=== PATIENT | female | born 1985 | race Caucasian/White ===

== ENCOUNTER 2018-08-22 12:36 | Outpatient (REF) | payer OTHER, SELFPAY ==
[2018-08-22 13:28] LABS: Abs Immature Grans 0.01 k/cumm (0.0-0.09); Absolute Basophil Count 0.02 k/cumm (0.0-0.2); Absolute Lymphocyte Count 0.92 k/cumm (1.2-3.4); Absolute Monocyte Count 0.37 k/cumm (0.11-0.7); Absolute Neutrophil Count 2.67 k/cumm (1.2-6.7); Basophils % 0.5; Eosinophils % 2.4; HCT 37.1 % (36.0-46.0); Immature Grans % 0.2; Lymphocytes % 22.5; Mean Corp. HGB Concentration 32.3 g/dL (32.0-36.0); Mean Corpuscular Hemoglobin 28.6 pg (27.0-33.0); Mean Corpuscular Volume 88.5 fL (80-95); Mean Platelet Volume 11.5 fL (8.0-11.0); Neutrophils % 65.4; Platelet Count 250 x1000/uL (130-400); RBC 4.19 m/cumm (4.00-5.20); RBC Distribution Width 13.7 % (11.7-14.6); White Blood Cell Count 4.09 k/cumm (4.4-10.8)
[2018-08-22 13:43] LABS: Cholesterol 120 mg/dL (50-200); Glucose 84 mg/dL (70-100); HDL Cholesterol 62 mg/dL (40-60); LDL CHOLESTEROL 46 mg/dL (<100); Triglyceride 36 mg/dL (30-150)
== END 2018-08-22 12:56 ==
LOC: NCHCN 12:36
PROVIDERS: Visit Provider Nurse Practitioner Family
DX: R07.9 Chest pain, unspecified (principal)
CPT/HCPCS: 80061; 82947; 83721; 85025

== ENCOUNTER 2019-03-13 15:47 | Outpatient (REF) | payer OTHER, SELFPAY ==
--- NOTE | 2019-03-13 15:00 | PAPFT_PTH ---
PATIENT: Marci Meyer LOC: [facility] U#:[id number] AGE/SX: 33/F ROOM: RE03/13/[address]: YAKOV Wolfe : 1985 BED: DIS: 03/13/2019 SPEC #: [id number] RECD: 03/13/19 18:02 STATUS: ERICK REJoselito #: [id number] ANASTASIA: 03/13/19 15:[address]: Mariola Eli DEPT: ON LICENSE OF [facility] Cytology RECD BY: Esperanza Dhaliwal ENTERED: 03/13/19 18:02 SP TYPE: PAPFT OTHR DR: Doretha Diaz Tissues: 1 - CX/ENDOCX FOR PAP SMEARS Procedures: PAP THIN PREP/[facility] Screening HPV DNA PROBE Comments: [id number]
== END 2019-03-13 16:07 ==
LOC: LBN 15:47
PROVIDERS: PCP Nurse Practitioner Family; Visit Provider Nurse Practitioner Family
DX: Z12.4 Encounter for screening for malignant neoplasm of cervix (principal); Z11.51 Encounter for screening for human papillomavirus (HPV)
CPT/HCPCS: 88142; 87624

== ENCOUNTER 2019-04-03 15:25 | Outpatient (REF) | payer OTHER, SELFPAY ==
--- NOTE | 2019-04-03 14:40 | ENDO_PTH ---
PATIENT: Marci Meyer LOC: [facility] U#:[id number] AGE/SX: 33/F ROOM: RE04/03/[address]: Trma Price : 1985 BED: DIS: 04/03/2019 SPEC #: [id number] RECD: 04/03/19 18:18 STATUS: ERICK REQ #: [id number] ANASTASIA: 04/03/19 14:[address]: Tram Price DEPT: Surgical Specimen RECD BY: Esperanza Dhaliwal ENTERED: 04/03/19 18:18 SP TYPE: Endo OTHR DR: Doretha Diaz Tissues: 1 - ENDOCERVICAL BX/CURRETTE Procedures: GROSS AND MICRO LEVEL 4 Comments: [id number]
== END 2019-04-03 15:45 ==
LOC: LBN 15:25
PROVIDERS: PCP Nurse Practitioner Family; Visit Provider Obstetrics & Gynecology Gynecology
DX: R87.613 High grade squamous intraepithelial lesion on cytologic smear of cervix (HGSIL) (principal); R87.810 Cervical high risk human papillomavirus (HPV) DNA test positive
CPT/HCPCS: 88305

== ENCOUNTER 2019-04-21 14:59 | Outpatient (REF) | payer OTHER, SELFPAY ==
--- NOTE | 2019-04-21 14:00 | CER_PTH ---
PATIENT: Marci Meyer LOC: [facility] U#:[id number] AGE/SX: 33/F ROOM: RE04/21/[address]: Josh Díaz MD : 1985 BED: DIS: 04/21/2019 SPEC #: [id number] RECD: 04/21/19 16:52 STATUS: ERICK REQ #: [id number] ANASTASIA: 04/21/19 14:[address]: Josh Díaz DEPT: Surgical Specimen RECD BY: Esperanza Dhaliwal ENTERED: 04/21/19 16:52 SP TYPE: CER OTHR DR: Doretha Diaz Tissues: 1 - CERVICAL LEEP/LOOP Procedures: GROSS AND MICRO LEVEL 5 Comments: [id number]
== END 2019-04-21 15:19 ==
LOC: LBN 14:59
PROVIDERS: PCP Nurse Practitioner Family; Visit Provider Obstetrics & Gynecology
DX: N87.1 Moderate cervical dysplasia (principal); Z87.410 Personal history of cervical dysplasia
CPT/HCPCS: 88307

== ENCOUNTER 2019-05-22 00:47 | Outpatient (CLI) | payer OTHER, SELFPAY ==
--- NOTE | 2019-05-22 14:20 | DI.US_ITS ---
SYMPTOM/DIAGNOSIS: HEAVY, PAINFUL PERIODS. DYSPAREUNIA N92.0 EXCESSIVE AND FREQUENT MENSTRUATION WITH REGULAR CYCLE. PELVIC ULTRASOUND: There are no prior comparison exams. The uterus measures 9.7 x 4.9 x 6.7 cm. No discrete fibroids are identified. The endometrium appears thickened at 2.4 cm and appears heterogeneous. The ovaries are normal in size and appearance. There is no evidence of free fluid or hydronephrosis. IMPRESSION: Thickened heterogeneous endometrium. Heterogeneous myometrium without focal fibroid.
== END 2019-05-22 01:07 ==
PROVIDERS: PCP Nurse Practitioner Family; Visit Provider Nurse Practitioner Family
DX: N92.0 Excessive and frequent menstruation with regular cycle (principal); N94.6 Dysmenorrhea, unspecified; N85.8 Other specified noninflammatory disorders of uterus
CPT/HCPCS: 76830; 76856

== ENCOUNTER 2019-08-20 19:55 | Emergency (ER) | payer OTHER, SELFPAY ==
[2019-08-20 20:06] VITALS: BP 120/72; PULSE 104; RESP 20; TEMP 37.1; O2SAT 100
--- NOTE | 2019-08-20 20:29 | DI.RAD_ITS ---
EXAM: XR CHEST 2V PA LATERAL INDICATION: r/o pneumonia., FEVER, RT SIDED CHEST PAIN COMPARISON: No exams were available for comparison TECHNIQUE: 2D digital imaging was performed. FINDINGS: The lungs are free of infiltrate. There is no pleural effusion. The cardiovascular structures appear intact. IMPRESSION: No evidence of acute cardiopulmonary disease.
[2019-08-20] MEDS: Ketorolac 15 MG/ML VIAL IVP (20:51)
[2019-08-20] MEDS: Normal Saline 1,000 ML 1000 ML IV (20:52)
--- NOTE | 2019-08-20 21:20 | DI.VRAD_ITS ---
PROCEDURE INFORMATION: Exam: XR Chest, 2 Views Exam date and time: 08/20/2019 8:31 PM Clinical history: 33 years old, female; Other: R/O pneumonia TECHNIQUE: Imaging protocol: XR of the chest Views: 2 views. COMPARISON: No relevant prior studies available. FINDINGS: Lungs: No definite parenchymal consolidation. Pleural space: Unremarkable. No pleural effusion. No pneumothorax. Heart/Mediastinum: Unremarkable. No cardiomegaly. Bones/joints: Unremarkable. IMPRESSION: No definite parenchymal consolidation. Dictated and Authenticated by: Rao Troncoso MD. Ordering:FABRICE Rojas MD
--- NOTE | 2019-08-20 21:48 | W.ED.GENAD ---
Discharge Plan Disposition Patient Disposition: HOME Condition: Good Discharge Details Chief Complaint: Fever Clinical Impression: Pericarditis, Viral illness Primary Care Provider: Bobo Oliveira ED Provider: Crystal New Home Meds and New Rx's Prescriptions: No Action Daytime Cold and Cough 1,000-30 mg/30 mL Liquid RF: 0 Discharge Instructions Instructions: Acute Pericarditis (ED) Additional Instructions: Use ibuprofen 600 mg every 8 hours for 1 week then begin to slowly taper the dose over the next 3 to 4 weeks Presents by mouth. Avoid heavy exertion. Follow-up with her primary care doctor this week in the office. Return for any worsening of your symptoms, difficulty breathing, shortness of breath, increasing chest pain, dizziness or feeling of syncope or for escalation of your symptoms as discussed. Return sooner if needed Discharge Data Discharge Date/Time-TO BE ENTERED AT DEPARTURE: 08/20/19 22:55 Medical Decision Making 33-year-old healthy patient presents with complaints of 5 days of illness. Day 3 and 4 associated with high fevers which have since resolved. Patient had a single morning of nausea which again since resolved. Patient has reported right-sided chest pain with radiation to her back. Patient reports an episode of dizziness 2 days ago and another today while driving to the ER. Patient denies obvious shortness of breath. Patient does have positional type chest pain which is improved when leaning forward. Patient had associated widespread body ache. Patient initial evaluation and exam concern for possible influenza. Influenza testing and x-ray ordered. Influenza testing and x-ray both negative. Given patient's positional change concern for likely post viral pericarditis. Bedside ultrasound preformed by Dr. Dent reveals small pericardial effusion. Discussed case and recommendation for NSAIDs or aspirin daily. Discussed the use of colchicine however patient would prefer to use NSAIDs alone initially as she prefers less medication. If not improved in next few days consider reevaluation. Patient's vital signs are stable. Heart rate 85 after Toradol. Patient in no apparent distress. Patient agrees with plan of care. Encourage return for any worsening, alarming or increase in her symptoms. Patient reports understanding HPI General Date/Time Provider Initiated Documentation: 08/20/19 20:11. HPI Narrative: Patient presents for onset of achiness and fatigue. Patient reports on day 3 of illness fever up to almost 103 measured at home, relieved on day 4. Patient reports associated chest pain on the right anterior chest as well as posteriorly. Patient reports associated chest pressure which is present. Patient reports an episode of dizziness 2 days ago which since relieved then she noticed an similar episode of dizziness today. Patient reports widespread body ache present during course of illness. Patient denies nasal congestion, sore throat or coughing. Patient does report episode of nausea 2 days ago which again since relieved no associated diarrhea or vomiting. Patient does report the chest pain is mildly positional and does improve when leaning forward. Related Data Home Medications Medication Instructions Recorded Confirmed acetaminophen-DM [Daytime Cold and ml 08/20/19 Cough] Allergies Allergy/AdvReac Type Severity Reaction Status Date / Time acetaminophen [From Vicodin] Allergy hives Verified 08/20/19 20:09 hydrocodone bitartrate Allergy hives Verified 08/20/19 20:09 [From Vicodin] hydrocodone [From Vicodin] AdvReac Intermediate Hives Verified 08/20/19 20:09 General Stated Complaint: Fever JOSE G: 3 Review of Systems Review of Systems Narrative: CONSTITUTIONAL: The patient denies fevers, chills. EYES: Denies vision changes, blurry vision, or eye pain. ENT: Denies hearing changes, tinnitus, vertigo, sore throat. CARDIAC: Chest pain present. RESPIRATORY: Denies cough, sputum. Denies difficulty breathing. GASTROINTESTINAL: Denies abdominal pain, changes in bowel, vomiting or nausea. GENITOURINARY: Denies dysuria, or frequency of urination. MUSCULOSKELETAL: Denies Joint pain, gait changes. NEUROLOGIC: Denies headaches, Denies focal weakness. Denies numbness. INTEGUMENT: Denies rashes. PSYCHIATRIC: Denies behavior changes. Denies anxiety or depression. ENDOCRINOLOGY: Denies fatigue. PSYCHIATRY: Denies depression, agitation or anxiety [facility] Medical History Abnormal cervical cytology (Acute 09/16/17) Bacterial vaginosis (Resolved) Frequent infections in the past. 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 Well hydrated. Alert and alert. HENMT: Head nomocephalic, normal to inspection. Atraumatic. Hearing grossly normal. EYES: General normal appearance. Alignment normal. Eyelids normal. Conjunctiva normal. NECK: Normal visual inspection. FROM. Trachea midline. No Midline tenderness. CHEST: Normal insepection of the chest. No palpable chest pain with palpation. RESP: Normal respiratory effort. Speaking full sentences. No cough. No audible wheezing. No retractions. CARDIO: No JVD. MUSCULOSKELETAL: Normal Gait. FROM of all extremities. SKIN: Normal. Dry. No rashes. NEURO: Alert and awake. Speech clear. PSYCH: Normal affect. Cooperative. Course Vital Signs Vital signs: Vital Signs Temperature 37.1 C 08/20/19 20:06 Pulse 104 H 08/20/19 20:06 Respiratory Rate 08/20/19 20:06 Blood Pressure 120/72 08/20/19 20:06 Pulse Oximetry 100 08/20/19 20:06 Temperature 37.1 C 08/20/19 20:06 Temperature Source Temporal Artery Scan 08/20/19 20:06 Pulse 104 H 08/20/19 20:06 Respiratory Rate 20 08/20/19 20:06 Blood Pressure 120/72 08/20/19 20:06 Blood Pressure Position Sitting 08/20/19 20:06 Pulse Oximetry 100 08/20/19 20:06 Oxygen Delivery Method Room Air 08/20/19 20:06 Oxygen Flow Rate 0 08/20/19 20:06 Lab/Test Results Lab/Test Results: 08/20/19 20:25 Nasopharynx Influenza Types A,B Antigen - Final
[2019-08-20 22:16] VITALS: BP 102/59; PULSE 85; RESP 16; TEMP 36.8; O2SAT 99
== END 2019-08-20 22:55 | disposition home or self-care (01) ==
PROVIDERS: Emergency Provider Physician Assistant; PCP Family Medicine
DX: I30.0 Acute nonspecific idiopathic pericarditis (principal); B34.9 Viral infection, unspecified
CPT/HCPCS: 87449; 96361; 96374; 99284; 71046; J1885

== ENCOUNTER 2020-02-22 09:44 | Outpatient (CLI) | payer BC, SELFPAY ==
[2020-02-24 06:32] LABS: SARS-CoV-2 RNA Undetected (Undetected); SARS-CoV-2 Specimen Source Nasopharynx
== END 2020-02-22 10:04 ==
LOC: NCHCN 09:48 → LBO 09:49
PROVIDERS: PCP Family Medicine; Visit Provider Family Medicine
DX: Z20.828 Contact with and (suspected) exposure to other viral communicable diseases (principal); R05 Cough; R50.9 Fever, unspecified
CPT/HCPCS: U0003

== ENCOUNTER 2020-04-15 00:30 | Outpatient (CLI) | payer BC, SELFPAY ==
--- NOTE | 2020-04-15 08:00 | ETT_ITS ---
APPROVED REPORT Exam: Exercise Treadmill Patient Location: Out-Patient Room/Bed: Stress Nurse: Luisana Anna RN BMI: 23.43 Baseline Rhythm: Sinus Rhythm Comment: Borderline short W[place] syndrome Indications: Patient reports having intermittent midsternal ???stabbing??? chest pain with both activ ity and at rest (occasionally) for the past 2 years. She states occasionally she will have radiation down left arm and dizziness. This chest pain lasts a few minutes and does away with she stops and yvette ms down. Medical History Medical History: ???Endocarditis last year??? Cardiac Medications: Amitriptyline Allergies: Vicodin Cardiac Risk Factors: FHX of CAD Previous Cardiac Procedures: None Pretest Chest Pain Characteristics: None Exercise History: Physically active Physical Disabilities: None Lung Sounds: Clear to auscultation Heart Sounds: Regular Stress Test Details Test: Exercise stress testing was performed using a Axel protocol. Rest Stress HR Resting HR Supine: 78 bpm Max Heart Rate (APMHR): 185 bpm Resting HR Standin bpm Target HR (85% APMHR): 157 bpm Max HR Achieved: 176 bpm % of APMHR: 95 HR response to stress: Normal HR response to stress BP Resting BP Supine: 118/72 mmHg Resting BP Standin/76 mmHg Max BP: 138/56 mmHg BP response to stress: Normal blood pressure response to stress. ECG Resting ECG: Sinus Rhythm Ectopy: Borderline short W[place] interval Stress ECG: Sinus Tachycardia ST Change: Normal Arrhythmia: None Recovery ECG: Sinus Rhythm Recovery ST Change: Normal Recovery Arrhythmia: None Clinical Reason for Termination: Fatigue Stress Symptoms: None Exercise duration: 12 min2 sec Highest Stage Reached: Stage 5: 5.0 mph at 18% grade. Exercise capacity: 13.49 METs Functional Capacity: Above average capacity Stress ECG Conclusion 1. The patient exercised for 12 minutes (13 METS) 2. Patient no symptoms suggestive of ischemia and stopped due to fatigue. 3. There is no evidence of ischemia on the ECG portion of the exam 4. The Perla Score ( 11) estimates an annual cardiovascular mortality of 0% and a five year survival o f 96%. Using the Perla Score there is a low probability of any angiographic coronary disease. Stress Test Summary STAGE Time (mins) Speed (mph) Grade (%) HR BP SYMPTOMS METS Supine 78 118/72 Standing 82 114/76 1 3 1.7 10 119 116/70 4.6 2 6 2.5 12 133 122/62 7 3 9 3.4 14 154 124/60 10.2 4 12 4.2 16 171 12.9 1 min recovery 143 138/56 3 min recovery 104 124/64 6 min recovery 98 120/68
== END 2020-04-15 00:50 ==
PROVIDERS: PCP Family Medicine; Visit Provider Nurse Practitioner Family
DX: R07.89 Other chest pain (principal); Z82.49 Family history of ischemic heart disease and other diseases of the circulatory system
CPT/HCPCS: 93017

== ENCOUNTER 2020-05-06 15:23 | Outpatient (REF) | payer BC, SELFPAY ==
--- NOTE | 2020-05-06 14:40 | PAPFT_PTH ---
PATIENT: Marci Meyer LOC: [facility] U#:[id number] AGE/SX: 34/F ROOM: RE05/06/[address]: YAKOV Wolfe : 1985 BED: DIS: 05/06/2020 SPEC #: [id number] RECD: 05/06/20 16:46 STATUS: ERICK REQ #: [id number] ANASTASIA: 05/06/20 14:[address]: Mariola Eli DEPT: [facility] Cytology RECD BY: Esperanza Dhaliwal ENTERED: 05/06/20 16:46 SP TYPE: PAPFT OTHR DR: Bobo Oliveira Tissues: 1 - CX/ENDOCX FOR PAP SMEARS Procedures: PAP THIN PREP/[facility] Screening Comments: [id number]
[2020-05-07 15:53] LABS: Chlamydia Result Negative (Negative); GC Result Negative (Negative)
== END 2020-05-06 15:43 ==
LOC: LBN 15:23
PROVIDERS: PCP Family Medicine; Visit Provider Nurse Practitioner Family
DX: Z11.3 Encounter for screening for infections with a predominantly sexual mode of transmission (principal); Z11.51 Encounter for screening for human papillomavirus (HPV); R87.612 Low grade squamous intraepithelial lesion on cytologic smear of cervix (LGSIL)
CPT/HCPCS: 87491; 87591; 88142

== ENCOUNTER 2020-05-27 03:59 | Outpatient (CLI) | payer BC, SELFPAY | END 2020-05-27 04:19 | PROVIDERS: PCP Family Medicine; Visit Provider Nurse Practitioner Family | DX: R07.9 Chest pain, unspecified (principal) | CPT/HCPCS: 93225 ==

== ENCOUNTER 2020-05-29 14:31 | Outpatient (CLI) | payer BC, SELFPAY ==
--- NOTE | 2020-05-30 08:57 | W.HOLTRPT ---
Date of service: 05/30/20 Time of Service: 08:57 Holter Monitor Report Holter Monitor Note: There is a 24-hour Holter monitor ordered for indication of chest pain. ?Patient was normal sinus rhythm for majority the recording with an average heart rate of 83 bpm. ?There were 0 episodes of SVT and 0 episodes of VT. ?There was one 7 beat run of idioventricular rhythm. ?There were no episodes of atrial fibrillation, no pauses grade 3 seconds no evidence of high degree heart block. ?All patient triggered events were associated with sinus rhythm and sinus tachycardia.
== END 2020-05-29 14:51 ==
PROVIDERS: PCP Family Medicine; Visit Provider Nurse Practitioner Family
DX: R07.9 Chest pain, unspecified (principal); I49.8 Other specified cardiac arrhythmias
CPT/HCPCS: 93226

== ENCOUNTER 2020-06-14 16:31 | Outpatient (REF) | payer BC, SELFPAY ==
--- NOTE | 2020-06-14 16:00 | ENDO_PTH ---
PATIENT: Marci Meyer LOC: [facility] U#:[id number] AGE/SX: 34/F ROOM: RE06/14/[address]: Tram Price : 1985 BED: DIS: 06/14/2020 SPEC #: [id number] RECD: 06/14/20 17:03 STATUS: ERICK REJoselito #: [id number] ANASTASIA: 06/14/20 16:[address]: Tram Price DEPT: Surgical Specimen RECD BY: Esperanza Dhaliwal ENTERED: 06/14/20 17:04 SP TYPE: Endo OTHR DR: Bobo Oliveira Tissues: 1 - ENDOCERVICAL BX/CURRETTE Procedures: GROSS AND MICRO LEVEL 4 Comments: [id number]
== END 2020-06-14 16:51 ==
LOC: LBN 16:31
PROVIDERS: PCP Family Medicine; Visit Provider Obstetrics & Gynecology Gynecology
DX: N87.1 Moderate cervical dysplasia (principal)
CPT/HCPCS: 88305

== ENCOUNTER 2020-07-10 14:42 | Outpatient (REF) | payer BC, SELFPAY ==
[2020-07-12 22:02] LABS: SARS-CoV-2 RNA Undetected (Undetected); SARS-CoV-2 Specimen Source Nasopharynx
== END 2020-07-10 15:02 ==
LOC: NCHCN 14:42
PROVIDERS: PCP Family Medicine; Visit Provider Nurse Practitioner Family
DX: R50.9 Fever, unspecified (principal)
CPT/HCPCS: U0003

== ENCOUNTER 2020-09-11 18:25 | Outpatient (REF) | payer BC, SELFPAY | END 2020-09-11 18:45 | LOC: NCHCN 18:25 | PROVIDERS: PCP Family Medicine; Visit Provider Family Medicine | DX: N39.0 Urinary tract infection, site not specified (principal) | CPT/HCPCS: 87086 ==

== ENCOUNTER 2021-02-13 17:17 | Outpatient (REF) | payer BC, SELFPAY ==
[2021-02-13 20:41] LABS: Abs Immature Grans 0.01 10^3/uL (0.0-0.06); Absolute Basophil Count 0.04 10^3/uL (0.0-0.2); Absolute Eosinophil Count 0.07 10^3/uL (0.0-0.7); Absolute Lymphocyte Count 1.03 10^3/uL (1.2-3.4); Absolute Monocyte Count 0.34 10^3/uL (0.1-0.8); Absolute Neutrophil Count 3.52 10^3/uL (1.2-6.7); Basophils % 0.8; Eosinophils % 1.4; HCT 37.5 % (36.0-46.0); HGB 12.1 g/dL (11.2-15.7); Immature Grans % 0.2; Lymphocytes % 20.6; MCH 27.6 pg (27.0-33.0); MCHC 32.3 % (32.0-36.0); MCV 85.4 fL (80-95); MPV 11.3 fL (8.0-11.0); Monocytes % 6.8; Neutrophils % 70.2; Nucleated RBC 0 %; Platelet Count 293 10^3/uL (130-400); RBC 4.39 10^6/uL (3.93-5.22); RDW 13.3 % (11.7-14.6); RDW-SD 41.9 fL; WBC 5.01 10^3/uL (4.4-10.8)
[2021-02-13 21:22] LABS: ALT 21 U/L (14-59); AST 7 U/L (15-37); Albumin 4.7 g/dL (3.4-5.0); Alkaline Phosphatase 60 U/L (46-116); Anion Gap 9.5 mmol/L (3-11); BUN 12 mg/dL (7-18); Bilirubin, Total 0.6 mg/dL (0.2-1.0); CO2 27.5 mmol/L (21.0-32.0); CREATININE 0.8 mg/dL (0.55-1.02); Calcium 9.2 mg/dL (8.5-10.1); Chloride 103 mmol/L (98-107); Glucose 86 mg/dL (74-106); Potassium 3.9 mmol/L (3.5-5.1); Sodium 140 mmol/L (136-145)
[2021-02-14 11:12] LABS: ESR 18 mm/hr (<or=20)
[2021-02-15 14:20] LABS: COVID-19 RT-PCR UVMMC Result Negative (Negative)
== END 2021-02-13 17:18 | disposition home or self-care (01) ==
LOC: NCHCN 17:17
PROVIDERS: PCP Family Medicine; Visit Provider Nurse Practitioner Family
DX: R50.9 Fever, unspecified (principal); Z20.822 Contact with and (suspected) exposure to COVID-19; J06.9 Acute upper respiratory infection, unspecified
CPT/HCPCS: 80053; 85652; U0003; 81003; 85025

== ENCOUNTER 2021-08-12 15:20 | Outpatient (REF) | payer BC, SELFPAY ==
[2021-08-14 19:41] LABS: COVID-19 RT-PCR UVMMC Result Negative (Negative)
== END 2021-08-12 15:21 | disposition home or self-care (01) ==
LOC: LBN 15:20
PROVIDERS: PCP Family Medicine; Visit Provider Nurse Practitioner Family
DX: Z20.822 Contact with and (suspected) exposure to COVID-19 (principal); J02.9 Acute pharyngitis, unspecified
CPT/HCPCS: U0003

== ENCOUNTER 2022-08-10 12:34 | Outpatient (REF) | payer BC, SELFPAY ==
--- NOTE | 2022-08-10 08:45 | PAPFT_PTH ---
PATIENT: Marci Meyer LOC: [facility] U#:[id number] AGE/SX: 36/F ROOM: RE08/10/[address]: Adriana French MD : 1985 BED: DIS: 08/10/2022 SPEC #: [id number] RECD: 08/10/22 13:11 STATUS: ERICK REQ #: [id number] ANASTASIA: 08/10/22 08:[address]: Adriana French DEPT: [facility] Cytology RECD BY: Esperanza Dhaliwal ENTERED: 08/10/22 13:12 SP TYPE: PAPFT OTHR DR: Bobo Oliveira Tissues: 1 - CX/ENDOCX FOR PAP SMEARS Procedures: PAP THIN PREP/[facility] Screening HPV DNA PROBE Comments: [id number]
== END 2022-08-10 12:35 | disposition home or self-care (01) ==
LOC: LBN 12:34
PROVIDERS: PCP Family Medicine; Visit Provider Obstetrics & Gynecology
DX: Z12.4 Encounter for screening for malignant neoplasm of cervix (principal); R87.613 High grade squamous intraepithelial lesion on cytologic smear of cervix (HGSIL); Z11.51 Encounter for screening for human papillomavirus (HPV); R87.810 Cervical high risk human papillomavirus (HPV) DNA test positive
CPT/HCPCS: 88142; 87624

== ENCOUNTER 2023-02-22 11:01 | Outpatient (REF) | payer BC, SELFPAY ==
--- NOTE | 2023-02-22 11:06 | CER_PTH ---
PATIENT: Marci Meyer LOC: [facility] U#:[id number] AGE/SX: 37/F ROOM: RE02/22/[address]: Adriana French MD : 1985 BED: DIS: 02/22/2023 SPEC #: [id number] RECD: 02/22/23 17:37 STATUS: ERICK REQ #: [id number] ANASTASIA: 02/22/23 11:[address]: Adriana French DEPT: Surgical Specimen RECD BY: Esperanza Dhaliwal ENTERED: 02/22/23 17:38 SP TYPE: CER OTHR DR: Bobo Oliveira Tissues: 1 - CERVICAL BIOPSY 2 - ENDOMETRIUM BX/CURRETTE Procedures: GROSS AND MICRO LEVEL 4 GROSS AND MICRO LEVEL 5 Comments: [id number]
== END 2023-02-22 11:02 | disposition home or self-care (01) ==
LOC: LBN 11:01
PROVIDERS: PCP Family Medicine; Visit Provider Obstetrics & Gynecology
DX: D06.0 Carcinoma in situ of endocervix (principal); N85.8 Other specified noninflammatory disorders of uterus; N93.8 Other specified abnormal uterine and vaginal bleeding; Z87.410 Personal history of cervical dysplasia
CPT/HCPCS: 88305; 88307